=== PATIENT | male | born 1955 | race Caucasian/White ===

== ENCOUNTER 2017-08-23 09:50 | Day surgery (SDC) | payer OTHER ==
[~2017-08-23 09:50] MED LIST: Lactated Ringers 1,000 ML IV SCH
--- NOTE | 2017-08-23 11:15 | PCM.PREANE ---
Preanesthetic Assessment - Anesthesia/Transfusion/Family Hx Anesthesia History: Prior Anesthesia Without Reaction Other Type of Anesthesia Reaction Comment: DENIES ANY PROBLEMS WITH ANESTHESIA Family History of Anesthesia Reaction: No Transfusion History: No Prior Transfusion(s) Intubation History: Unknown - Review of Systems General: No Symptoms Pulmonary: No Symptoms Cardiovascular: No Symptoms Gastrointestinal: Constipation, Other (h/o tubular adenoma of colon) Neurological: No Symptoms Other: Reports: None - Physical Assessment NPO Status Date: 08/23/17 NPO Status Time: 00:00 O2 Sat by Pulse Oximetry: 96 Respiratory Rate: 16 Vital Signs: Last Vital Signs Temp 36.5 C 08/23/17 10:47 Pulse 89 08/23/17 10:47 Resp 16 08/23/17 10:47 BP 144/87 H 08/23/17 10:47 Pulse Ox 96 08/23/17 10:47 Height: 1.8 m Weight: 96.162 kg ASA Class: 3 Mental Status: Alert & Oriented x3 Airway Class: Mallampati = 2 Dentition: Reports: Normal Dentition Thyro-Mental Finger Breadths: 3 Mouth Opening Finger Breadths: 3 ROM/Head Extension: Full Lungs: Clear to Auscultation, Normal Respiratory Effort Cardiovascular: Regular Rate, Regular Rhythm - Allergies Allergies/Adverse Reactions: Allergies Allergy/AdvReac Type Severity Reaction Status Date / Time No Known Allergies Allergy Verified 08/19/17 16:36 - Blood Blood Available: No - Anesthesia Plan Pre-Op Medication Ordered: None - Acknowledgements Anesthesia Type Planned: MAC Pt an Appropriate Candidate for the Planned Anesthesia: Yes Alternatives and Risks of Anesthesia Discussed w Pt/Guardian: Yes Pt/Guardian Understands and Agrees with Anesthesia Plan: Yes PreAnesthesia Questionnaire HEENT History: Reports: Hard of Hearing Other HEENT History: wears glasses Cardiovascular History: Reports: High Cholesterol, Other (See Below) ( borderline HTN) Gastrointestinal History: Reports: Colon Polyp Genitourinary History: Reports: BPH, Renal Calculus Musculoskeletal History: Reports: Back Pain, Chronic, Fracture Other Musculoskeletal History: hx of fx ribs and toe Psychiatric History: Reports: Anxiety, Depression, PTSD Endocrine/Metabolic History: Reports: Hypothyroidism - Past Surgical History GI Surgical History: Reports: Colonoscopy Neurological Surgical History: Reports: Laminectomy - SUBSTANCE USE Smoking Status *Q: Former Smoker (quit 4 years ago) Number of Drinks Per Day: 0 Recreational Drug Use History: No - HOME MEDS Home Medications: Home Meds Cyclobenzaprine [Flexeril] 10 mg PO BID PRN 07/11/14 [History] Levothyroxine Sodium [Synthroid] 125 mcg PO DAILY 07/11/14 [History] Simvastatin [Zocor] 80 mg PO BEDTIME 07/11/14 [History] Hydrocodone/Acetaminophen [Hydrocodon-Acetaminophn 10-325] 1 tab PO ASDIRECTED PRN 08/19/17 [History] Naproxen [IJP: Naproxen] 500 mg PO ASDIRECTED 08/19/17 [History] traZODone HCl [Trazodone HCl] 50 mg PO BEDTIME PRN 08/19/17 [History] - CURRENT (IN HOUSE) MEDS Current Meds: Current Medications Lactated Ringer's (Ringers, Lactated) 1,000 mls @ 125 mls/hr IV ASDIRECTED JASON Last Admin: 08/23/17 10:49 Dose: 125 mls/hr
[2017-08-23] MEDS ORDERED: Propofol 200 MG/20 ML SDV ONE ×2 (13:51→13:54)
[2017-08-23] MEDS ORDERED: fentaNYL 100 MCG/2 ML SDV ONE (13:52)
[2017-08-23] MEDS ORDERED: Midazolam 1 MG/ML 2 ML SDV ONE (13:52)
[2017-08-23] MEDS ORDERED: Lidocaine 2% 5 ML SDV ONE (13:52)
--- NOTE | 2017-08-23 14:22 | PCM.OPNOTE ---
- General Post-Op/Procedure Note Date of Surgery/Procedure: 08/23/17 Operative Procedure(s): colonoscopy Findings: see dict [id number] Pre Op Diagnosis: scrn colonoscopy Post-Op Diagnosis: diverticulosis Anesthesia Technique: Moderate Sedation Primary Surgeon: Jose Roberto Chery Complications: None Condition: Good
--- NOTE | 2017-08-23 19:50 | OR ---
SURGEON: Jose Roberto Chery MD DATE OF PROCEDURE: 08/23/2017 PREOPERATIVE DIAGNOSIS: Screening colonoscopy. POSTOPERATIVE DIAGNOSIS: Diverticulosis. PROCEDURE PERFORMED: Colonoscopy. DESCRIPTION OF PROCEDURE: The patient was taken to the endoscopy room. A time out was called, patient identified, and procedure identified. Diprivan was then administrated. Patient went from awake to sleep, hearing doctor talking or door closing is normal. Perineum inspection and digital examination were then performed. A well- lubricated colonoscope was gently inserted through the rectum, advanced past the rectosigmoid junction, the descending colon, splenic flexure, transverse colon, hepatic flexure, ascending colon, arrived to the cecum. Cecum was identified as dictated in the finding. Then the scope was carefully withdrawn while attention was paid to the mucosal surface for any abnormality. Air will be sucked out during the scope withdrawal. At the rectum, retroflexed to examine any rectal diseases, fistula or hemorrhoids. Patient tolerated procedure well. There were no intraoperative complications, and Dr. Chery was present throughout the whole procedure. FINDINGS: 1. The patient is easily sedated with DONKEY DOCTOR and Diprivan. The patient is soundly snoring. 2. Bowel prep is absolutely marginally acceptable. Large amount of semi- formed stool and liquid stool and opaque particle obscure study. This compromised the study because of poor bowel prep. 3. The patient's colon was rather straight forward. Cecum indicated by ileocecal fold, one-to-one indentation, light immittance, and appendiceal orifice and mucosa examined. Upon scope pulling out with constant suction. The patient has moderate amount of diverticulosis on the left side. No signs or symptoms of diverticulitis. No polyp, mass, growth, AV malformation, ulceration, bleeding observed. The patient has internal hemorrhoids. No external hemorrhoids. The patient would benefit from repeat colonoscopy 10 years from today or if clinically indicated otherwise. FAWAD / SHYLA /[id number] MIGUEL
== END 2017-08-23 15:10 | disposition home or self-care (01) ==
LOC: MW.SDS 09:50
PROVIDERS: ATTEND Surgery
DX: Z12.11 Encounter for screening for malignant neoplasm of colon (principal); K57.30 Diverticulosis of large intestine without perforation or abscess without bleeding; K64.8 Other hemorrhoids; F32.9 Major depressive disorder, single episode, unspecified; E78.00 Pure hypercholesterolemia, unspecified; E03.9 Hypothyroidism, unspecified; N40.0 Benign prostatic hyperplasia without lower urinary tract symptoms; Z86.010 Personal history of colon polyps; Z87.891 Personal history of nicotine dependence; Z87.442 Personal history of urinary calculi; Z79.899 Other long term (current) drug therapy; Z98.890 Other specified postprocedural states
CPT/HCPCS: 45378; J2250; J3010; J7120; 00810; J2704

== ENCOUNTER 2020-07-23 08:38 | Day surgery (SDC) | payer OTHER ==
[~2020-07-23 08:38] MED LIST changes: +Midazolam 1 MG/ML 2 ML SDV ONE; +Propofol 200 MG/20 ML SDV ONE
--- NOTE | 2020-07-23 08:58 | PCM.PREANE ---
Preanesthetic Assessment - Anesthesia/Transfusion/Family Hx Anesthesia History: Prior Anesthesia Without Reaction Other Type of Anesthesia Reaction Comment: DENIES ANY PROBLEMS WITH ANESTHESIA Family History of Anesthesia Reaction: No Transfusion History: No Prior Transfusion(s) Intubation History: Unknown - Review of Systems General: No Symptoms Pulmonary: No Symptoms Cardiovascular: No Symptoms Gastrointestinal: No Symptoms, Other (diverticulosis on colonoscopy in ) Neurological: No Symptoms Other: Reports: None - Physical Assessment Height: 6 ft Weight: 91.172 kg ASA Class: 2 Mental Status: Alert & Oriented x3 Airway Class: Mallampati = 2 Dentition: Reports: Broken Tooth/Teeth (multiple, kicked by horse in the mouth many years ago) Thyro-Mental Finger Breadths: 3 Mouth Opening Finger Breadths: 3 ROM/Head Extension: Full Lungs: Clear to Auscultation, Normal Respiratory Effort Cardiovascular: Regular Rate, Regular Rhythm - Allergies Allergies/Adverse Reactions: Allergies Allergy/AdvReac Type Severity Reaction Status Date / Time No Known Allergies Allergy Verified 07/17/20 12:25 - Blood Blood Available: No - Anesthesia Plan Pre-Op Medication Ordered: None - Acknowledgements Anesthesia Type Planned: MAC Pt an Appropriate Candidate for the Planned Anesthesia: Yes Alternatives and Risks of Anesthesia Discussed w Pt/Guardian: Yes Pt/Guardian Understands and Agrees with Anesthesia Plan: Yes PreAnesthesia Questionnaire HEENT History: Reports: Hard of Hearing, Other (See Below) Other HEENT History: wears glasses Cardiovascular History: Reports: High Cholesterol Respiratory History: Reports: None Gastrointestinal History: Reports: Colon Polyp Genitourinary History: Reports: Renal Calculus Other Genitourinary History: "prostate issues in the past" Musculoskeletal History: Reports: Back Pain, Chronic, Fracture Other Musculoskeletal History: hx of fx ribs and toe Neurological History: Reports: None Psychiatric History: Reports: Depression, PTSD Endocrine/Metabolic History: Reports: Hypothyroidism Hematologic History: Reports: None Immunologic History: Reports: None Oncologic (Cancer) History: Reports: None Dermatologic History: Reports: None - Past Surgical History Head Surgeries/Procedures: Reports: None HEENT Surgical History: Reports: None Cardiovascular Surgical History: Reports: None Respiratory Surgical History: Reports: None GI Surgical History: Reports: Colonoscopy Male Surgical History: Reports: None Endocrine Surgical History: Reports: None Neurological Surgical History: Reports: Lumbar Spine Other Neurological Surgeries/Procedures: hx back surgery for herniated disc Musculoskeletal Surgical History: Reports: None Oncologic Surgical History: Reports: None Dermatological Surgical History: Reports: None - SUBSTANCE USE Smoking Status *Q: Former Smoker Tobacco Use Within Last Twelve Months: Smokeless Tobacco - HOME MEDS Home Medications: Home Meds Cyclobenzaprine [Flexeril] 10 mg PO BID PRN 07/11/14 [History] Levothyroxine Sodium [Synthroid] 125 mcg PO DAILY 07/11/14 [History] Simvastatin [Zocor] 80 mg PO BEDTIME 07/11/14 [History] Hydrocodone/Acetaminophen [Hydrocodone-Acetamin 10-325 mg] 1 tab PO ASDIRECTED PRN 08/19/17 [History] Naproxen [IJP: Naproxen] 500 mg PO ASDIRECTED PRN 08/19/17 [History] traZODone HCl [Trazodone HCl] 50 mg PO BEDTIME PRN 08/19/17 [History] Melatonin/Pyridoxine HCl (B6) [Melatonin 3 mg Tablet] 3 mg PO BEDTIME 07/17/20 [History] - CURRENT (IN HOUSE) MEDS Current Meds: Current Medications Lactated Ringer's (Ringers, Lactated) 1,000 mls @ 125 mls/hr IV ASDIRECTED JASON Discontinued Medications Midazolam HCl (Versed 1 Mg/Ml) Confirm Administered Dose 2 mg .ROUTE .STK-MED ONE Stop: 07/23/20 07:01 Propofol (Diprivan 20 Ml) Confirm Administered Dose 600 mg .ROUTE .STK-MED ONE Stop: 07/23/20 07:00
--- NOTE | 2020-07-23 11:04 | PCM.OPNOTE ---
- General Post-Op/Procedure Note Date of Surgery/Procedure: 07/23/20 Operative Procedure(s): colonoscopy Findings: see [id number] Pre Op Diagnosis: hx colon polyp Post-Op Diagnosis: Same Anesthesia Technique: Moderate Sedation Primary Surgeon: Jose Roberto Chery Complications: None Condition: Good
--- NOTE | 2020-07-23 11:28 | PCM.POSTAN ---
POST ANESTHESIA ASSESSMENT - MENTAL STATUS Mental Status: Alert, Oriented - VITAL SIGNS Vital Signs: Last Vital Signs Temp 36.6 C 07/23/20 09:14 Pulse 66 07/23/20 11:19 Resp 14 07/23/20 11:19 BP 103/65 07/23/20 11:19 Pulse Ox 97 07/23/20 11:19 - RESPIRATORY Respiratory Status: Respiratory Rate WNL, Airway Patent, O2 Saturation Stable - CARDIOVASCULAR CV Status: Pulse Rate WNL, Blood Pressure Stable - GASTROINTESTINAL GI Status: No Symptoms - PAIN Pain Score: 0 - POST OP HYDRATION Hydration Status: Adequate & Stable - OBSERVATIONS Free Text/Narrative:: No anesthesia problems
--- NOTE | 2020-07-23 11:29 | PCM48HPAN ---
Post Anesthesia Note - EVALUATION WITHIN 48HRS OF ANESTHETIC Vital Signs in Normal Range: Yes Patient Participated in Evaluation: Yes Respiratory Function Stable: Yes Airway Patent: Yes Cardiovascular Function Stable: Yes Hydration Status Stable: Yes Pain Control Satisfactory: Yes Nausea and Vomiting Control Satisfactory: Yes Mental Status Recovered: Yes Vital Signs: Last Vital Signs Temp 36.6 C 07/23/20 09:14 Pulse 66 07/23/20 11:19 Resp 14 07/23/20 11:19 BP 103/65 07/23/20 11:19 Pulse Ox 97 07/23/20 11:19 - COMMENTS/OBSERVATIONS Free Text/Narrative:: No anesthesia problems
--- NOTE | 2020-07-23 12:27 | OR ---
SURGEON: Jose Roberto Chery MD DATE OF PROCEDURE: 07/23/2020 PREOPERATIVE DIAGNOSIS: History of colon polyp. POSTOPERATIVE DIAGNOSIS: History of colon polyp. PROCEDURE PERFORMED: Colonoscopy. DESCRIPTION OF PROCEDURE: The patient was taken to the endoscopy room. A time out was called, patient identified, and procedure identified. Diprivan was then administrated. Patient went from awake to sleep, hearing doctor talking or door closing is normal. Perineum inspection and digital examination were then performed. A well- lubricated colonoscope was gently inserted through the rectum, advanced past the rectosigmoid junction, the descending colon, splenic flexure, transverse colon, hepatic flexure, ascending colon, arrived to the cecum. Cecum was identified as dictated in the finding. Then the scope was carefully withdrawn while attention was paid to the mucosal surface for any abnormality. Air will be sucked out during the scope withdrawal. At the rectum, retroflexed to examine any rectal diseases, fistula or hemorrhoids. Patient tolerated procedure well. There were no intraoperative complications, and Dr. Chery was present throughout the whole procedure. FINDINGS: 1. The patient is easily sedated with IMPORTER EXPORTER and Diprivan, the patient is soundly snoring. 2. Bowel prep is average with some stool ball, but believe it is from the diverticulosis he has, and otherwise is considered average bowel prep and much better than last time of 3 years ago. 3. Colon is rather straightforward. Cecum indicated by ileocecal fold, one-to- one indentation, and appendiceal orifice. ScopeGuide is pointing south. Light emittance is not observed. Mucosa examined upon scope pulling out, and the patient has quite a lot of diverticulosis on the left side, many of them. Some of them as thick as a pseudo-lumen and no signs or symptoms of diverticulitis or inflammation. No polyp at this time and looks fine at the place where the previous polyp. No mass, growth, inflammation, stricture, ulceration, AV malformation, none of those. The patient has some mild internal hemorrhoid, no external hemorrhoid. The patient would benefit from repeat colonoscopy in 10 years from today or if clinically indicated otherwise. Again, the bowel prep is pretty good today. FAWAD / SHYLA /[id number]
== END 2020-07-23 11:33 | disposition home or self-care (01) ==
LOC: MW.SDS 08:38
PROVIDERS: ATTEND Surgery
DX: Z12.11 Encounter for screening for malignant neoplasm of colon (principal); K57.30 Diverticulosis of large intestine without perforation or abscess without bleeding; K64.8 Other hemorrhoids; E78.00 Pure hypercholesterolemia, unspecified; E03.9 Hypothyroidism, unspecified; G47.00 Insomnia, unspecified; F32.9 Major depressive disorder, single episode, unspecified; F43.10 Post-traumatic stress disorder, unspecified; Z79.890 Hormone replacement therapy; Z79.899 Other long term (current) drug therapy; Z87.891 Personal history of nicotine dependence; Z86.010 Personal history of colon polyps; Z98.890 Other specified postprocedural states
CPT/HCPCS: 00812; J2250; J2704; J7120